=== PATIENT | female | born 1965 | race Caucasian/White ===

== ENCOUNTER 2021-06-12 02:10 | Emergency (ER) | payer OTHER ==
[2021-06-12] MEDS ORDERED: Sodium Chloride 0.9% 10 ML Syringe FLUSH PRN (02:35)
[2021-06-12] MEDS ORDERED: Aspirin 81 MG Tab.Chew PO ONE (02:39)
--- NOTE | 2021-06-12 02:45 | EDM.PDOC ---
ED HPI GENERAL MEDICAL PROBLEM - General Chief Complaint: General Stated Complaint: Weak / Palpitaitons Time Seen by Provider: 06/12/21 02:34 Source of Information: Reports: Patient - History of Present Illness INITIAL COMMENTS - FREE TEXT/NARRATIVE: Evelia is a 56 y/o female who presents to the ER with complaints of chest palpitations that woke her up about 0200. She reports going upstairs and sitting in a recliner and then falling asleep. She felt tired today and had several naps, but other sampson was fine. She denies any SOB, but woke up feeling like her heart "stopped and re-started". She felt a bit better after drinking water, but still had some discomfort in her chest. Unsure if she has sleep apnea and has an appointment coming up with PCP to discuss testing. - Related Data Allergies Allergy/AdvReac Type Severity Reaction Status Date / Time erythromycin base AdvReac Severe Nausea and Verified 06/12/21 02:46 Vomiting Home Meds: Home Meds Levothyroxine Sodium [Synthroid] 1 tab PO DAILY 10/26/14 [History] Sertraline [Zoloft] 50 mg PO DAILY 10/26/14 [History] atenoloL [Atenolol] 1 tab PO DAILY 10/26/14 [History] Naltrexone 25 mg PO DAILY 06/12/21 [History] ED ROS GENERAL - Review of Systems Review Of Systems: See Below Constitutional: Reports: No Symptoms HEENT: Reports: No Symptoms Respiratory: Reports: No Symptoms Cardiovascular: Reports: Palpitations Endocrine: Reports: Fatigue GI/Abdominal: Reports: No Symptoms : Reports: No Symptoms Musculoskeletal: Reports: No Symptoms Skin: Reports: No Symptoms Neurological: Reports: No Symptoms Psychiatric: Reports: No Symptoms Hematologic/Lymphatic: Reports: No Symptoms Immunologic: Reports: No Symptoms ED EXAM, GENERAL - Physical Exam Exam: See Below Exam Limited By: No Limitations General Appearance: Alert, WD/WN, No Apparent Distress Eye Exam: Bilateral Eye: PERRL Ears: Normal External Exam, Hearing Grossly Normal Nose: Normal Inspection, Normal Mucosa Throat/Mouth: Normal Inspection, Normal Voice Head: Atraumatic, Normocephalic Neck: Normal Inspection, Supple Respiratory/Chest: No Respiratory Distress, Chest Non-Tender Cardiovascular: Normal Peripheral Pulses, Regular Rate, Rhythm, No Murmur GI/Abdominal: Normal Bowel Sounds, Soft, Non-Tender (Female) Exam: Deferred Rectal (Female) Exam: Deferred Back Exam: Normal Inspection, Full Range of Motion Extremities: Normal Inspection, Normal Range of Motion, No Pedal Edema Neurological: Alert, Oriented, CN II-XII Intact, Normal Cognition Psychiatric: Normal Affect, Normal Mood Skin Exam: Warm, Dry, Intact, Normal Color Lymphatic: No Adenopathy #1 Interpretation EKG Date: 06/12/21 Time: 02:06 Rhythm: NSR Rate (Beats/Min): 61 [place]: Normal P-Wave: Present QRS: Normal ST-T: Normal QT: Normal EKG Interpretation Comments: Normal Sinus Rhythm Course - Vital Signs Text/Narrative:: 0234 The patient was seen by the [employer]. Labs and EKG done. She was given ASA 324mg po x 1 dose. 0345 Labs reviewed. Patient resting and no longer any complaints. Calculated HEART score= 1, Risk of MACE 0.9-1.7%. Results discussed with patient and her . [employer] PROF[employer] encouraged her to stay for serial Troponin, but patient wants to go home at this time. She was given discharge instructions and left the ER in stable condition. Last Recorded V/S: Last Vital Signs Temp 36.5 C 06/12/21 02:49 Pulse 63 06/12/21 02:49 Resp 12 06/12/21 02:49 BP 145/86 H 06/12/21 02:49 Pulse Ox 99 06/12/21 02:49 - Orders/Labs/Meds Orders: Active Orders 24 hr Category Date Time Status Sodium Chloride 0.9% [Saline Flush] Med 06/12/21 02:35 Active 10 ml FLUSH ASDIRECTED PRN Saline Lock Insert [OM.PC] Stat Oth 06/12/21 02:35 Ordered Medication Orders Sodium Chloride (Sodium Chloride 0.9% 10 Ml Syringe) 10 ml FLUSH ASDIRECTED PRN PRN Reason: Keep Vein Open Labs: Laboratory Tests 06/12/21 06/12/21 06/12/21 Range/Units 02:35 02:35 02:35 WBC 5.9 (4.0-10.0) x10^3/uL RBC 4.70 (4.00-5.50) x10^6/uL Hgb 14.5 (12.0-16.0) g/dL Hct 39.8 (33.0-47.0) % MCV 84.7 (78.0-93.0) fL MCH 30.9 (26.0-32.0) pg MCHC 36.4 H (32.0-36.0) g/dL RDW Coeff of Blanche 13.1 (10.0-15.0) % Plt Count 213 (130-400) x10^3/uL Neut % (Auto) 47.3 L (50.0-80.0) % Lymph % (Auto) 39.7 (25.0-50.0) % [place] % (Auto) 10.3 (2.0-11.0) % Eos % (Auto) 2.4 (0.0-4.0) % Baso % (Auto) 0.3 (0.2-1.2) % PT 9.9 (9.9-12.5) SEC INR 0.9 L (2.0-3.5) APTT 23.6 L (25.6-32.8) SEC D-Dimer, Quantitative 0.22 (<=0.58) mg/LFEU Sodium 140 (136-145) mmol/L Potassium 3.7 (3.5-5.1) mmol/L Chloride 105 (98-107) mmol/L Carbon Dioxide 28 (21-32) mmol/L Anion Gap 10.7 (5-15) mmol/L BUN 12 (7-18) mg/dL Creatinine 0.7 (0.55-1.02) mg/dL Est Cr Clr Drug Dosing 83.01 mL/min Estimated GFR (MDRD) > 60 Glucose 101 H (70-99) mg/dL Calcium 8.5 (8.5-10.1) mg/dL Corrected Calcium 8.9 (8.5-10.1) mg/dL Magnesium 2.1 (1.8-2.4) mg/dL Total Bilirubin 0.3 (0.2-1.0) mg/dL AST 20 (15-37) U/L ALT 18 (14-59) U/L Alkaline Phosphatase 82 (46-116) U/L Troponin I High Sens 5 (<=51) ng/L Total Protein 7.6 (6.4-8.2) g/dL Albumin 3.5 (3.4-5.0) g/dL Globulin 4.1 Albumin/Globulin Ratio 0.85 Meds: Medications Generic Name Dose Route Start Last Admin Trade Name Freq PRN Reason Stop Dose Admin Sodium Chloride 10 ml 06/12/21 02:35 Sodium Chloride 0.9% 10 Ml Syringe FLUSH ASDIRECTED PRN Keep Vein Open Discontinued Medications Generic Name Dose Route Start Last Admin Trade Name Freq PRN Reason Stop Dose Admin Aspirin 324 mg 06/12/21 02:39 06/12/21 02:42 Aspirin 81 Mg Tab.Chew PO 06/12/21 02:40 324 mg ONETIME ONE Administration Departure - Departure Time of Disposition: 03:49 Disposition: Home, Self-Care 01 Preliminary Cause of *Q: Cardiac Arrest Condition: Good Clinical Impression: Palpitations - Discharge Information *PRESCRIPTION DRUG MONITORING PROGRAM REVIEWED*: No *COPY OF PRESCRIPTION DRUG MONITORING REPORT IN PATIENT BRAD: No Instructions: Palpitations Referrals: Carmelita Inman, [Primary Care Provider] - Forms: ED Department Discharge Additional Instructions: -Rest -Keep appt with your PCP, but if any further symptoms occur or any other concerns, return to the ER. Sepsis Event Note (ED) - Focused Exam Vital Signs: Vital Signs Temp Pulse Resp BP Pulse Ox 06/12/21 02:49 36.5 C 63 12 145/86 H 99 - My Orders Last 24 Hours: My Active Orders 06/12/21 02:35 Sodium Chloride 0.9% [Saline Flush] 10 ml FLUSH ASDIRECTED PRN Saline Lock Insert [OM.PC] Stat - Assessment/Plan Last 24 Hours: My Active Orders 06/12/21 02:35 Sodium Chloride 0.9% [Saline Flush] 10 ml FLUSH ASDIRECTED PRN Saline Lock Insert [OM.PC] Stat Assessment:: 1)Palpitations Plan: See above
[2021-06-12 03:08] LABS: CHLORIDE,CL 105 mmol/L (98-107); SODIUM,NA 140 mmol/L (136-145)
[2021-06-12 03:11] LABS: ANION GAP 10.7 mmol/L (5-15)
[2021-06-12 03:28] LABS: PTT,PARTIAL THROMBOPLSTIN TIME 23.6 SEC (25.6-32.8)
== END 2021-06-12 03:59 | disposition home or self-care (01) ==
LOC: VM.ED 02:10
DX: R00.2 Palpitations (principal); Z88.1 Allergy status to other antibiotic agents; Z79.899 Other long term (current) drug therapy
CPT/HCPCS: 80053; 83735; 84484; 85025; 85379; 85610; 85730; 93005; 93010; 99284; 99285-25; A9270-GY

== ENCOUNTER 2023-02-19 02:46 | Emergency (ER) | payer OTHER ==
[2023-02-19] MEDS ORDERED: Acetaminophen 500 MG Tab PO ONE (03:06)
[2023-02-19] MEDS ORDERED: Sodium Chloride 0.9% 1,000 ML IV SCH (03:30)
[2023-02-19 03:39] LABS: PTT,PARTIAL THROMBOPLSTIN TIME 23.7 SEC (23.6-33.6)
[2023-02-19 03:44] LABS: CHLORIDE,CL 101 mmol/L (98-107); SODIUM,NA 138 mmol/L (136-145)
[2023-02-19 03:45] LABS: ANION GAP 12.4 mmol/L (5-15); ESTIMATED GFR 85 mL/min (>=60)
[2023-02-19] MEDS ORDERED: Iopamidol 612 MG/ML 100 ML Bottle IVPUSH ONE (03:48)
== END 2023-02-19 05:07 | disposition home or self-care (01) ==
LOC: VM.ED 02:46
DX: K81.9 Cholecystitis, unspecified (principal); E03.9 Hypothyroidism, unspecified; Z88.1 Allergy status to other antibiotic agents; Z79.899 Other long term (current) drug therapy
CPT/HCPCS: 36415; 74177; 80053; 81003; 82150; 83605; 83690; 83735; 84100; 84484; 85025; 85610; 85730; 86140; 87040; 96360; 99284; 99285-25; A9270-GY; J7030; Q9967